=== PATIENT | female | born 1965 | race African-American/Black ===

== ENCOUNTER 2016-05-23 09:38 | Emergency (ER) | payer SELFPAY ==
[~2016-05-23] VITALS: Ht 177.8 cm; Wt 68.0 kg
[~2016-05-23 09:38] MED LIST: ATIVAN1 MG PO; DILAUDID4 M1; FEROSUL325 MG PO; GLUCOPHAGE500 MG PO; METFORMIN500 MG PO; MULTIPLE VITAMI1 TA2 PO; NEXIUM40 MG PO; NORCO 10/325 MG1 TAB PO; PEPCID20 MG PO; PRILOSEC20 MG PO; ZANTAC PO; ZOFRAN4 M1 PO; [UNRECOGNIZED DRUG - OTHER]; [UNRECOGNIZED DRUG - REMARK]
[2016-05-23 09:44] VITALS: BP 137/73
--- NOTE | 2016-05-23 09:56 | NUR ---
Pt ambulated to bed 8.
--- NOTE | 2016-05-23 10:03 | NUR ---
Note undone in EDM - 05/23/16 at 1013 by [facility] PATIENT PRESENTS TO ED WITH VOMITING X2 DAYS WITH "LEAKY RECTUM" . PT STATES she has abdominal pain;pt took tylenol but it doesn't make the pain go away.SKIN IS PINK/WARM/DRY; AAOX4 WITH EVEN AND STEADY GAIT; LUNGS CLEAR BL; HR EVEN AND REGULAR; PT DENIES ANY FEVER, CP, SOB, OR COUGH AT THIS TIME; PATIENT STATES PAIN OF 10/10 AT THIS TIME;PATIENT POSITIONED FOR COMFORT; HOB ELEVATED; BEDRAILS UP X2; BED DOWN.Needs attended. ER MD MADE AWARE OF PT STATUS.
--- NOTE | 2016-05-23 10:03 | NUR ---
PATIENT PRESENTS TO ED WITH VOMITING X2 DAYS WITH "LEAKY RECTUM" . PT STATES she has abdominal pain;pt took tylenol but it doesn't make the pain go away.SKIN IS PINK/WARM/DRY; AAOX4 WITH EVEN AND STEADY GAIT; LUNGS CLEAR BL; HR EVEN AND REGULAR; PT DENIES CP, SOB, OR COUGH AT THIS TIME; PATIENT STATES PAIN OF 10/10 AT THIS TIME;PATIENT POSITIONED FOR COMFORT; HOB ELEVATED; BEDRAILS UP X2; BED DOWN.Needs attended. ER MD MADE AWARE OF PT STATUS.
--- NOTE | 2016-05-23 10:09 | NUR ---
50/F presents to the ED for evaluation of abdominal pain accompanied with N/V since Saturday, 3 days ago. Patient states the vomiting started on Saturday, with decreased appetite. Pt also reports having fever last night and mild chills this morning. Pt describes pain as cramping, intermittent, to left side of abdomen radiating to back, 12/23. Patient also c/o dry heaving and gagging along with diarrhea during the night. Patient is AOX4, ambulates with steady gait. VSS. No visible signs of distress. Pt states she took Tylenol PM and antidiarrheal medications with no relief.
--- NOTE | 2016-05-23 10:10 | NUR ---
PT AAO.NO ACUTE DISTRESS NOTED AT THIS TIME.AMBULATED TO RESTROOM.
--- NOTE | 2016-05-23 10:10 | NUR ---
Patient being evaluated by physician at bedside.
[2016-05-23] MEDS ORDERED: ONDANSETRON 4 MG/2 ML VIAL IVP ONE (10:20)
[2016-05-23] MEDS ORDERED: HYDROmorphone 1 MG/ML AMP IVP ONE ×2 (10:20→11:45)
--- NOTE | 2016-05-23 10:50 | NUR ---
Patient taken to CT via gurney.
--- NOTE | 2016-05-23 11:01 | NUR ---
Patient returned from CT.
[2016-05-23] MEDS: NACL 0.9% 1,000 ML IV SCH ×2 (11:07→11:32)
--- NOTE | 2016-05-23 11:22 | NUR ---
Patient appears to be resting comfortably in bed. Vital Signs within normal limits. Respirations even and unlabored.
--- NOTE | 2016-05-23 11:51 | NUR ---
PT IS STILL COMPLAINING OF ABDOMINAL PAIN AND ASKED FOR PAIN RELIEVER.POSITION PT TO COMFORT.NEEDS ATTENDED.NOTIFIED DR GALEANA.ORDERED DILAUDID 1 MG IVP.
--- NOTE | 2016-05-23 12:20 | NUR ---
DR GALEANA AT BEDSIDE.
--- NOTE | 2016-05-23 12:40 | NUR ---
Patient discharged with v/s stable. Written and verbal after care instructions given and explained. Patient alert, oriented and verbalized understanding of instructions. Ambulatory with steady gait. All questions addressed prior to discharge. ID band removed. Patient advised to follow up with PMD. Rx of NORCO AND ZOFRAN given. Patient educated on indication of medication including possible reaction and side effects. Opportunity to ask questions provided and answered.
[2016-05-23 12:42] VITALS: BP 130/81
== END 2016-05-23 12:40 | disposition home or self-care (01) ==
LOC: MED 09:38
DX: R10.13 Epigastric pain (principal); R11.2 Nausea with vomiting, unspecified; R19.7 Diarrhea, unspecified; K21.9 Gastro-esophageal reflux disease without esophagitis; Z88.6 Allergy status to analgesic agent; Z88.5 Allergy status to narcotic agent
CPT/HCPCS: 36415; 74176; 80053; 81001; 81025; 83690; 85025; 96361; 96374; 96375; 96376; 99285; J1170; J2405; J7030

== ENCOUNTER 2016-11-05 16:33 | Emergency (ER) | payer SELFPAY ==
[~2016-11-05] VITALS: Ht 182.9 cm; Wt 77.2 kg
[~2016-11-05 16:33] MED LIST changes: -ATIVAN1 MG PO; -DILAUDID4 M1; -FEROSUL325 MG PO; +FERR-18 PO; -GLUCOPHAGE500 MG PO; +HYDR-4452 PO; +LORA-476 PO; -METFORMIN500 MG PO; -MULTIPLE VITAMI1 TA2 PO; -NEXIUM40 MG PO; -NORCO 10/325 MG1 TAB PO; +ONDA4TAB PO; -PEPCID20 MG PO; -PRILOSEC20 MG PO; -ZANTAC PO; -ZOFRAN4 M1 PO; +[UNRECOGNIZED DRUG - CODE] PO; -[UNRECOGNIZED DRUG - OTHER]; -[UNRECOGNIZED DRUG - REMARK]
[2016-11-05 16:40] VITALS: BP 129/54
[2016-11-05 17:35] LABS: BASOPHILS # (AUTO) 0.1 K/uL (0.00-0.22); BASOPHILS % (AUTO) 1.9 % (0.0-2.0); EOSINOPHILS # (AUTO) 0.1 K/uL (0-0.4); EOSINOPHILS % (AUTO) 2.3 % (0.0-4.0); HEMATOCRIT 31.6 % (36-48); HEMOGLOBIN 9.7 g/dL (12.0-16.0); LYMPHOCYTES # (AUTO) 1.6 K/uL (2.5-16.5); LYMPHOCYTES % (AUTO) 38.1 % (20.5-51.1); MEAN CORPUSCULAR HEMOGLOBIN 26 pg (27-31); MEAN CORPUSCULAR HGB CONC 31 g/dL (33-37); MEAN CORPUSCULAR VOLUME 84 fL (80-94); MONOCYTES # (AUTO) 0.3 K/uL (0.8-1.0); MONOCYTES % (AUTO) 6.1 % (1.7-9.3); NEUTROPHILS # (AUTO) 2.1 K/uL (1.8-7.7); NEUTROPHILS % (AUTO) 51.6 % (42.2-75.2); PLATELET COUNT (AUTO) 193 K/uL (140-450); RED BLOOD CELL COUNT(AUTO) 3.74 MIL/uL (4.20-5.40); RED CELL DISTRIBUTION WIDTH 16.1 % (11.6-13.7); WHITE BLOOD COUNT (AUTO) 4.2 K/uL (4.8-10.8)
[2016-11-05 17:41] LABS: APPEARANCE,URINE CLEAR (CLEAR); BILIRUBIN,URINE NEGATIVE (NEGATIVE); BLOOD, URINE NEGATIVE (NEGATIVE); COLOR,URINE YELLOW (YELLOW); LEUKOCYTE ESTERASE ,URINE NEGATIVE (NEGATIVE); NITRITE, URINE NEGATIVE (NEGATIVE); PH,URINE 5.5 (5.0-9.0); PROTEIN,URINE NEGATIVE (NEGATIVE); UGLUCOSE NEGATIVE (NEGATIVE); UROBILINOGEN,URINE 0.2 EU/dL (0.2 - 1)
[2016-11-05 17:48] LABS: ANION GAP 9.2 (8-16); CALCIUM 7.9 mg/dL (8.5-10.1); CARBON DIOXIDE 26.6 mmol/L (21-32); CREATININE 1.1 mg/dL (0.6-1.3); POTASSIUM 3.8 mmol/L (3.5-5.1)
[2016-11-05 17:51] LABS: BACTERIA,URINE None Seen /HPF (None Seen); RBC,URINE NONE SEEN /HPF (0-5); SQUAMOUS EPITHELIAL CELL,UR None Seen /LPF (0-3 (FEW)); WBC,URINE NONE SEEN /HPF (0-5)
[2016-11-05 17:54] LABS: ALBUMIN 3.4 g/dL (3.4-5.0); TOTAL BILIRUBIN 0.3 mg/dL (0.0-1.0); TOTAL PROTEIN, SERUM 6.9 g/dL (6.4-8.2)
--- NOTE | 2016-11-05 18:29 | NUR ---
PATIENT TO BED 5.
[2016-11-05] MEDS ORDERED: ONDANSETRON 4 MG ODT PO ONE (18:35)
[2016-11-05] MEDS ORDERED: MORPHINE SULFATE 4 MG/ML SYR IM ONE (18:35)
--- NOTE | 2016-11-05 18:35 | NUR ---
PATIENT PRESENTS TO ED WITH C/O UPPER ABDOMINAL PAIN X 5 DAYS -WATERY/LOOSE STOOLS AND NAUSEA VOMITING X 3 DAYS UNABLE TO TOLERATE PO'S HX----GATRIC BYPASS, BOWEL OBSTRUCTION RX----MULTI VITAMINS, IRON; DENIES N/V; SKIN IS PINK/WARM/DRY; AAOX4 WITH EVEN AND STEADY GAIT; LUNGS CLEAR BL; HR EVEN AND REGULAR; PT DENIES ANY FEVER, CP, SOB, OR COUGH AT THIS TIME; PATIENT STATES PAIN OF 8/10 AT THIS TIME; VSS; PATIENT POSITIONED FOR COMFORT; HOB ELEVATED; BEDRAILS UP X2; BED DOWN. ER MD MADE AWARE OF PT STATUS.
[2016-11-05 19:17] VITALS: BP 129/82
--- NOTE | 2016-11-05 19:17 | NUR ---
Patient discharged with v/s stable. Written and verbal after care instructions given and explained. Patient alert, oriented and verbalized understanding of instructions. Ambulatory with steady gait. All questions addressed prior to discharge. ID band removed. Patient advised to follow up with PMD. Rx of ZOFRAN, IMODIUM, NORCO given. Patient educated on indication of medication including possible reaction and side effects. Opportunity to ask questions provided and answered.
== END 2016-11-05 19:17 | disposition home or self-care (01) ==
LOC: MED 16:33
DX: R11.2 Nausea with vomiting, unspecified (principal); R19.7 Diarrhea, unspecified; R10.13 Epigastric pain; K21.9 Gastro-esophageal reflux disease without esophagitis; Z88.5 Allergy status to narcotic agent; Z88.8 Allergy status to other drugs, medicaments and biological substances; Z79.899 Other long term (current) drug therapy
CPT/HCPCS: 36415; 74176; 80053; 81001; 81025; 83690; 85025; 96374; 99285; J2270; S0119

== ENCOUNTER 2016-12-11 14:02 | Emergency (ER) | payer SELFPAY ==
[~2016-12-11] VITALS: Ht 177.8 cm; Wt 72.6 kg
[2016-12-11 14:51] VITALS: BP 127/75
--- NOTE | 2016-12-11 15:24 | NUR ---
Patient to OF.
--- NOTE | 2016-12-11 15:29 | NUR ---
Dr. Villegas evaluating patient.
[2016-12-11] MEDS ORDERED: ONDANSETRON 4 MG ODT PO ONE (15:30)
[2016-12-11] MEDS ORDERED: NACL 0.9% 1,000 ML IV ONE (15:30)
--- NOTE | 2016-12-11 15:34 | NUR ---
Patient ambulated to bed 05.
--- NOTE | 2016-12-11 15:38 | NUR ---
PT PRESENTS TO ER W/C/O VOMITING X2 DAYS.PT STATES SHE HAS ABDOMINAL PAIN;SKIN IS PINK/WARM/DRY; AAOX4 WITH EVEN AND STEADY GAIT; LUNGS CLEAR BL; HR EVEN AND REGULAR; PT DENIES ANY FEVER, CP, SOB, OR COUGH AT THIS TIME; PATIENT STATES PAIN OF 10/10 AT THIS TIME; VSS; PATIENT POSITIONED FOR COMFORT; HOB ELEVATED; BEDRAILS UP X2; ALL MONITORS IN PLACED;BED DOWN. ER MD MADE AWARE OF PT STATUS.
[2016-12-11 16:11] LABS: HEMATOCRIT 35.3 % (36-48); HEMOGLOBIN 10.8 g/dL (12.0-16.0); MEAN CORPUSCULAR HEMOGLOBIN 26 pg (27-31); MEAN CORPUSCULAR HGB CONC 31 g/dL (33-37); MEAN CORPUSCULAR VOLUME 84 fL (80-94); PLATELET COUNT (AUTO) 183 K/uL (140-450); RED CELL DISTRIBUTION WIDTH 16.1 % (11.6-13.7); WHITE BLOOD COUNT (AUTO) 4.6 K/uL (4.8-10.8)
[2016-12-11 16:26] LABS: EOSINOPHILS % (MANUAL) 3 % (0-4); LYMPHOCYTES % (MANUAL) 25 % (20-46); MONOCYTES % (MANUAL) 8 % (5-12)
[2016-12-11] MEDS ORDERED: HYDROmorphone 1 MG/ML AMP IVP ONE (16:40)
--- NOTE | 2016-12-11 16:45 | NUR ---
ASKED PT IF SHE CAN GIVE URINE SPECIMEN;PT STATES SHE CAN'T AT THIS TIME;
[2016-12-11 16:49] LABS: ANION GAP 18.4 (8-16); CARBON DIOXIDE 22.7 mmol/L (21-32); CREATININE 1.1 mg/dL (0.6-1.3); POTASSIUM 4.1 mmol/L (3.5-5.1)
[2016-12-11 17:01] LABS: TOTAL BILIRUBIN 0.3 mg/dL (0.0-1.0)
--- NOTE | 2016-12-11 17:07 | NUR ---
WENT TO CT SCAN ACCOMPANIED BY TECH.
[2016-12-11 18:12] VITALS: BP 121/81
[2016-12-11 18:12] LABS: APPEARANCE,URINE CLEAR (CLEAR); BILIRUBIN,URINE NEGATIVE (NEGATIVE); BLOOD, URINE NEGATIVE (NEGATIVE); COLOR,URINE YELLOW (YELLOW); LEUKOCYTE ESTERASE ,URINE 1+ (NEGATIVE); NITRITE, URINE POSITIVE (NEGATIVE); UGLUCOSE NEGATIVE (NEGATIVE)
[2016-12-11 18:19] LABS: RBC,URINE 0-5 /HPF (0-5)
== END 2016-12-11 18:12 | disposition home or self-care (01) ==
LOC: MED 14:02
DX: R10.31 Right lower quadrant pain (principal); R10.32 Left lower quadrant pain; R11.2 Nausea with vomiting, unspecified; R19.7 Diarrhea, unspecified
CPT/HCPCS: 36415; 74176; 80053; 81001; 81025; 83690; 85025; 87077; 87086; 87186; 96361; 96374; 99285; J1170; J7030; S0119

== ENCOUNTER 2016-12-25 14:23 | Emergency (ER) | payer SELFPAY ==
[~2016-12-25] VITALS: Ht 177.8 cm; Wt 72.6 kg
[2016-12-25 15:20] VITALS: BP 117/72
--- NOTE | 2016-12-25 15:45 | NUR ---
PATIENT LEFT WITHOUT BEING SEEN BY DR. HARMON. NO FURTHER CARE PROVIDED FOR PATIENT.
== END 2016-12-25 15:45 | disposition left against medical advice (07) ==
LOC: MED 14:23
DX: Z48.01 Encounter for change or removal of surgical wound dressing (principal); Z53.21 Procedure and treatment not carried out due to patient leaving prior to being seen by health care provider

== ENCOUNTER 2017-01-09 11:09 | Emergency (ER) | payer MEDICAID ==
[~2017-01-09] VITALS: Ht 177.8 cm; Wt 81.6 kg
[~2017-01-09 11:09] MED LIST changes: +ACET-787 PO; -HYDR-4452 PO
[2017-01-09 11:22] VITALS: BP 126/75
[2017-01-09] MEDS: HYDROmorphone 1 MG/ML AMP IM ONE (15:27)
[2017-01-09] MEDS: CLINDAMYCIN 600 MG/4 ML VIAL IM ONE (15:27)
[2017-01-09] MEDS: LIDOCAINE 1% 500 MG/50 ML VIAL INJ ONE (16:40)
[2017-01-09 17:06] VITALS: BP 119/72
== END 2017-01-09 17:07 | disposition home or self-care (01) ==
LOC: MED 11:09
DX: L02.413 Cutaneous abscess of right upper limb (principal); Z88.6 Allergy status to analgesic agent; Z88.5 Allergy status to narcotic agent; K21.9 Gastro-esophageal reflux disease without esophagitis
CPT/HCPCS: 10060; 87070; 87075; 87186; 96372; 99284; J1170; J2001; J3490

== ENCOUNTER 2017-02-26 13:27 | Emergency (ER) | payer SELFPAY ==
[~2017-02-26] VITALS: Ht 180.3 cm; Wt 75.3 kg
[2017-02-26 13:49] VITALS: BP 126/74
--- NOTE | 2017-02-26 13:55 | NUR ---
PATIENT PRESENTS TO ED WITH C/O RUQ PAIN X 7 DAYS . PT STATES N/V/D ; SKIN IS PINK/WARM/DRY; AAOX4 WITH EVEN AND STEADY GAIT; LUNGS CLEAR BL; HR EVEN AND REGULAR; PT DENIES ANY FEVER, CP, SOB, OR COUGH AT THIS TIME; PATIENT STATES PAIN OF 10/10 AT THIS TIME;PATIENT POSITIONED FOR COMFORT; HOB ELEVATED; BEDRAILS UP X2; BED DOWN. ER MD MADE AWARE OF PT STATUS.
[2017-02-26 14:26] LABS: APPEARANCE,URINE CLEAR (CLEAR); BILIRUBIN,URINE NEGATIVE (NEGATIVE); BLOOD, URINE NEGATIVE (NEGATIVE); LEUKOCYTE ESTERASE ,URINE NEGATIVE (NEGATIVE); NITRITE, URINE NEGATIVE (NEGATIVE); PH,URINE 5.5 (5.0-9.0); UGLUCOSE NEGATIVE (NEGATIVE)
[2017-02-26 14:31] LABS: BASOPHILS # (AUTO) 0.1 K/uL (0.00-0.22); EOSINOPHILS # (AUTO) 0.1 K/uL (0-0.4); HEMATOCRIT 32.6 % (36-48); HEMOGLOBIN 9.9 g/dL (12.0-16.0); LYMPHOCYTES # (AUTO) 1.4 K/uL (2.5-16.5); MEAN CORPUSCULAR HEMOGLOBIN 25 pg (27-31); MEAN CORPUSCULAR HGB CONC 31 g/dL (33-37); MEAN CORPUSCULAR VOLUME 83 fL (80-94); MONOCYTES # (AUTO) 0.4 K/uL (0.8-1.0); NEUTROPHILS # (AUTO) 2.8 K/uL (1.8-7.7); PLATELET COUNT (AUTO) 163 K/uL (140-450); RED BLOOD CELL COUNT(AUTO) 3.95 MIL/uL (4.20-5.40); RED CELL DISTRIBUTION WIDTH 17.2 % (11.6-13.7); WHITE BLOOD COUNT (AUTO) 4.8 K/uL (4.8-10.8)
[2017-02-26 14:36] LABS: COLOR,URINE STRAW (YELLOW)
[2017-02-26 14:49] LABS: POTASSIUM 4.2 mmol/L (3.5-5.1)
[2017-02-26 14:50] LABS: ANION GAP 12.9 (8-16); CARBON DIOXIDE 27.3 mmol/L (21-32); CREATININE 1.2 mg/dL (0.6-1.3); TOTAL BILIRUBIN 0.4 mg/dL (0.0-1.0)
[2017-02-26 14:51] LABS: ALBUMIN 3.4 g/dL (3.4-5.0)
--- NOTE | 2017-02-26 14:56 | NUR ---
Patient being evaluated by DR DRIVER at bedside.
[2017-02-26] MEDS ORDERED: fentaNYL 0.05 MG/ML VIAL IM ONE (15:00)
[2017-02-26] MEDS ORDERED: ONDANSETRON 4 MG ODT PO ONE (15:00)
[2017-02-26 15:43] VITALS: BP 127/68
== END 2017-02-26 15:43 | disposition home or self-care (01) ==
LOC: MED 13:27
DX: R10.11 Right upper quadrant pain (principal); R11.2 Nausea with vomiting, unspecified; K21.9 Gastro-esophageal reflux disease without esophagitis; Z98.84 Bariatric surgery status; Z90.89 Acquired absence of other organs; Z88.5 Allergy status to narcotic agent; Z88.6 Allergy status to analgesic agent
CPT/HCPCS: 36415; 74022; 80053; 81003; 81025; 83690; 85025; 96372; 99285; J3010; S0119

== ENCOUNTER 2017-10-01 17:12 | Emergency (ER) | payer MEDICAID, OTHER ==
[~2017-10-01] VITALS: Ht 177.8 cm; Wt 68.0 kg
[2017-10-01 17:19] VITALS: BP 122/84
[2017-10-01] MEDS ORDERED: ONDANSETRON 4 MG ODT PO ONE (17:50)
[2017-10-01] MEDS ORDERED: HYDROmorphone PFS 2 MG/ML SYR IM ONE (17:50)
[2017-10-01 18:15] LABS: APPEARANCE,URINE CLEAR (CLEAR); BILIRUBIN,URINE NEGATIVE (NEGATIVE); BLOOD, URINE NEGATIVE (NEGATIVE); COLOR,URINE YELLOW (YELLOW); LEUKOCYTE ESTERASE ,URINE NEGATIVE (NEGATIVE); NITRITE, URINE NEGATIVE (NEGATIVE); UGLUCOSE NEGATIVE (NEGATIVE)
[2017-10-01 18:42] LABS: BASOPHILS % (AUTO) 0.6 % (0.0-2.0); EOSINOPHILS % (AUTO) 1.1 % (0.0-4.0); HEMATOCRIT 30.4 % (36-48); HEMOGLOBIN 9.7 g/dL (12.0-16.0); LYMPHOCYTES # (AUTO) 1.2 K/uL (2.5-16.5); LYMPHOCYTES % (AUTO) 27.7 % (20.5-51.1); MEAN CORPUSCULAR HEMOGLOBIN 26 pg (27-31); MEAN CORPUSCULAR HGB CONC 32 g/dL (33-37); MEAN CORPUSCULAR VOLUME 80.5 fL (80-94); MONOCYTES # (AUTO) 0.3 K/uL (0.8-1.0); MONOCYTES % (AUTO) 7.2 % (1.7-9.3); NEUTROPHILS # (AUTO) 2.8 K/uL (1.8-7.7); NEUTROPHILS % (AUTO) 63.4 % (42.2-75.2); PLATELET COUNT (AUTO) 179 K/uL (140-450); RED BLOOD CELL COUNT(AUTO) 3.78 MIL/uL (4.20-5.40); RED CELL DISTRIBUTION WIDTH 17.6 % (11.6-13.7); WHITE BLOOD COUNT (AUTO) 4.4 K/uL (4.8-10.8)
[2017-10-01 18:52] LABS: ANION GAP 14.8 (8-16); CARBON DIOXIDE 25.5 mmol/L (21-32); CREATININE 1.4 mg/dL (0.6-1.3); POTASSIUM 4.3 mmol/L (3.5-5.1)
[2017-10-01 18:56] LABS: ALBUMIN 3.7 g/dL (3.4-5.0); TOTAL BILIRUBIN 0.2 mg/dL (0.0-1.0)
[2017-10-01] MEDS ORDERED: METOCLOPRAMIDE 10 MG TAB PO ONE (19:25)
[2017-10-01] MEDS ORDERED: traMADol 50 MG TAB PO ONE (19:25)
[2017-10-01 19:51] VITALS: BP 122/84
== END 2017-10-01 19:51 | disposition home or self-care (01) ==
LOC: MED 17:12
DX: K59.00 Constipation, unspecified (principal); R11.2 Nausea with vomiting, unspecified; K21.9 Gastro-esophageal reflux disease without esophagitis; Z98.84 Bariatric surgery status; Z88.8 Allergy status to other drugs, medicaments and biological substances; Z88.6 Allergy status to analgesic agent; Z79.899 Other long term (current) drug therapy
CPT/HCPCS: 36415; 74022; 80053; 81003; 81025; 83690; 85025; 96372; 99285; J1170; J8597; S0119

== ENCOUNTER 2017-11-03 19:33 | Emergency (ER) | payer OTHER ==
[~2017-11-03] VITALS: Ht 177.8 cm; Wt 68.0 kg
[2017-11-03 19:40] VITALS: BP 128/75
--- NOTE | 2017-11-03 19:42 | NUR ---
TO BED # 8 AMBULATORY, REPORT GIVEN TO JOSIAH WALKER
--- NOTE | 2017-11-03 19:45 | NUR ---
52/F CAME IN W C/O MULTIPLE EPISODES OF N/V/D X 10 DAYS. REPORTS DIFFUSED ABD PAIN, BS ACTIVE X4, ABD SOFT, ROUND +TENDERNESS DIFFUSED. DENIES HEMATEMESIS OR BLOOD IN STOOLS. PMH: GASTRIC BYPASS, ACUTE PANCREATITIS, SBO
[2017-11-03] MEDS ORDERED: FAMOTIDINE 20 MG/2 ML VIAL IVP ONE (20:10)
[2017-11-03] MEDS ORDERED: NACL 0.9% 1,000 ML IV SCH (20:10)
[2017-11-03] MEDS ORDERED: ONDANSETRON 4 MG/2 ML VIAL IVP ONE (20:10)
--- NOTE | 2017-11-03 20:20 | NUR ---
PT TAKEN TO CT
[2017-11-03 21:23] LABS: APPEARANCE,URINE CLEAR (CLEAR); BILIRUBIN,URINE NEGATIVE (NEGATIVE); BLOOD, URINE NEGATIVE (NEGATIVE); COLOR,URINE YELLOW (YELLOW); LEUKOCYTE ESTERASE ,URINE NEGATIVE (NEGATIVE); NITRITE, URINE NEGATIVE (NEGATIVE); UGLUCOSE NEGATIVE (NEGATIVE)
[2017-11-03] MEDS ORDERED: MORPHINE SULFATE 4 MG/ML SYR IVP ONE (21:50)
--- NOTE | 2017-11-03 22:04 | NUR ---
Patient appears to be resting comfortably in bed. Vital Signs within normal limits. Respirations even and unlabored.
[2017-11-03 22:14] LABS: RED BLOOD CELL COUNT(AUTO) 3.41 MIL/uL (4.20-5.40); WHITE BLOOD COUNT (AUTO) 4.2 K/uL (4.8-10.8)
[2017-11-03 22:15] LABS: BASOPHILS # (AUTO) 0.1 K/uL (0.00-0.22); BASOPHILS % (AUTO) 1.7 % (0.0-2.0); EOSINOPHILS # (AUTO) 0.1 K/uL (0-0.4); EOSINOPHILS % (AUTO) 2.1 % (0.0-4.0); HEMOGLOBIN 8.5 g/dL (12.0-16.0); LYMPHOCYTES # (AUTO) 1.7 K/uL (2.5-16.5); LYMPHOCYTES % (AUTO) 39.8 % (20.5-51.1); MEAN CORPUSCULAR HEMOGLOBIN 25 pg (27-31); MEAN CORPUSCULAR HGB CONC 31 g/dL (33-37); MEAN CORPUSCULAR VOLUME 82.2 fL (80-94); MONOCYTES # (AUTO) 0.5 K/uL (0.8-1.0); MONOCYTES % (AUTO) 11.1 % (1.7-9.3); NEUTROPHILS # (AUTO) 1.8 K/uL (1.8-7.7); NEUTROPHILS % (AUTO) 45.3 % (42.2-75.2); PLATELET COUNT (AUTO) 182 K/uL (140-450); RED CELL DISTRIBUTION WIDTH 16.6 % (11.6-13.7)
[2017-11-03 22:41] LABS: ANION GAP 10.7 (8-16); CARBON DIOXIDE 23.8 mmol/L (21-32); POTASSIUM 3.5 mmol/L (3.5-5.1)
[2017-11-03 22:42] LABS: CREATININE 1.2 mg/dL (0.6-1.3); TOTAL BILIRUBIN 0.2 mg/dL (0.0-1.0)
[2017-11-03 22:43] LABS: ALBUMIN 3.3 g/dL (3.4-5.0)
--- NOTE | 2017-11-03 23:14 | NUR ---
Female Water Proofer accompanied DR SONG female patient for Rectal Exam.
--- NOTE | 2017-11-03 23:31 | NUR ---
Patient discharged with v/s stable. Written and verbal after care instructions given and explained. Patient alert, oriented and verbalized understanding of instructions. Ambulatory with steady gait. All questions addressed prior to discharge. ID band removed. Patient advised to follow up with PMD. Rx of PEPCID, TRAMADOL, ZOFRAN ODT given. Patient educated on indication of medication including possible reaction and side effects. Opportunity to ask questions provided and answered. IV removed, catheter intact and site benign. Applied folded 4x4 gauze and tape to stop bleeding.
[2017-11-03 23:32] VITALS: BP 123/73
== END 2017-11-03 23:31 | disposition home or self-care (01) ==
LOC: MED 19:33
DX: D64.9 Anemia, unspecified (principal); R10.30 Lower abdominal pain, unspecified; K21.9 Gastro-esophageal reflux disease without esophagitis; Z98.84 Bariatric surgery status; Z88.6 Allergy status to analgesic agent
CPT/HCPCS: 36415; 74176; 80053; 81003; 81025; 82150; 83690; 85025; 96361; 96374; 96375; 99285; J2270; J2405; J3490

== ENCOUNTER 2017-12-09 12:01 | Emergency (ER) | payer OTHER ==
[~2017-12-09] VITALS: Ht 177.8 cm; Wt 68.0 kg
[2017-12-09 12:32] VITALS: BP 117/76
[2017-12-09 12:50] VITALS: BP 117/76
--- NOTE | 2017-12-09 12:50 | NUR ---
PT. CAME INTO THE ED DUE TO ABD PAIN N/V/D X 3 DAYS. PT. STATES " I HAVE NOT BEEN ABLE TO EAT ANYTHING AND I HAVE BEEN VOMITING AND HAVING DIAHRRHEA SINCE SATURDAY". 12/23 CRAMPING PAIN ON LEFT SIDE OF ABD THAT RADIATES ALL OVER. DENIES BLOOD IN STOOL OR VOMIT. ABD IS FLAT AND SOFT AND NON TENDER UPON PALPATION. PT. STATES " IM JUST WORRIED I HAVE A BOWEL OBSTRUCTION AGAIN I HAEV BEEN POOPING CLEAR LIQUID". PT. STATES " I HAVE BEEN HAVING FEVERS EVERY NIGHT FOR THE PAST 3 DAYS". ER MD NOTIFIED. SAFETY PRECAUTIONS IMPLEMENTED. WILL CONTINUE TO MONITOR.
[2017-12-09] MEDS ORDERED: ONDANSETRON 4 MG ODT PO ONE (13:15)
[2017-12-09] MEDS ORDERED: FAMOTIDINE 20 MG TAB PO ONE (13:15)
--- NOTE | 2017-12-09 13:17 | NUR ---
WALKED INTO PT ROOM, PT WAS NOT PRESENT, WAS NOT IN RESTROOM, ASKED ADMITTING WHO STATED " YEAH SHE WALKED OUT". PT. ELOPED AT THIS TIME. ER MD GIRON AWARE.
== END 2017-12-09 13:17 | disposition left against medical advice (07) ==
LOC: MED 12:01
DX: K21.9 Gastro-esophageal reflux disease without esophagitis (principal); G89.29 Other chronic pain; Z79.899 Other long term (current) drug therapy; Z88.6 Allergy status to analgesic agent
CPT/HCPCS: 81002; 81025; 99283